=== PATIENT | male | born 1990 | race Caucasian/White ===

== ENCOUNTER 2020-04-03 11:17 | Emergency (ER) | payer OTHER ==
[~2020-04-03] VITALS: Ht 182.9 cm; Wt 81.7 kg
[2020-04-03] MEDS ORDERED: VALTREX1000 MG PO (12:32)
[2020-04-03 12:48] VITALS: BP 109/69
== END 2020-04-03 12:49 | disposition home or self-care (01) ==
LOC: M.ERS 11:17
DX: B02.9 Zoster without complications (principal)